=== PATIENT | male | born 1985 | race Caucasian/White ===

== ENCOUNTER 2020-03-01 21:30 | Emergency (ER) | payer SELFPAY ==
[~2020-03-01] VITALS: Ht 167.6 cm; Wt 74.8 kg
[2020-03-01 21:30] VITALS: BP 138/81
--- NOTE | 2020-03-01 21:30 | NUR ---
PT TAKEN TO BED 12 VIA GURNEY. NEGATIVE COVID SCREEN. PT WEARING MASK. TRAIGE NURSE WEARING PPE.
--- NOTE | 2020-03-01 21:58 | NUR ---
DR FARRELL AT BEDSIDE EVALUATING PATIENT.
[2020-03-01 22:00] VITALS: BP 138/81
--- NOTE | 2020-03-01 22:01 | NUR ---
34M PT BIBA ALS FOR ETOH INTOXICATION. PER EMT PT WAS FOUND 'PASSED OUT" IN STREET AND BYSTANDARD CALLED 911. PT STATES DRINKING FULL BOTTLE OF VODKA. PT A/O X [address] AND TIME -SLURRED SPEECH. PMHX: DENIES -RX, -ALLX
--- NOTE | 2020-03-01 22:16 | NUR ---
PATIENT ELOPED FROM FACILITY. DISCHARGE INSTRUCTIONS NOT GIVEN TO PATIENT. DR. FARRELL NOTIFIED.
== END 2020-03-01 22:16 | disposition left against medical advice (07) ==
LOC: MED 21:30
DX: F10.120 Alcohol abuse with intoxication, uncomplicated (principal); R03.0 Elevated blood-pressure reading, without diagnosis of hypertension; Y90.9 Presence of alcohol in blood, level not specified
CPT/HCPCS: 99283